=== PATIENT | female | born 1970 | race Caucasian/White ===

== ENCOUNTER 2022-02-20 10:45 | Emergency (ER) | payer BC ==
[2022-02-20 11:06] VITALS: BP 190/75
--- NOTE | 2022-02-20 11:09 | ED Physician Documentation ---
PD HPI LOWER EXT INJURY - Stated complaint Stated Complaint: LEFT KNEE PROBLEM - Chief complaint Chief Complaint: Ext Problem - History obtained from History obtained from: Patient - History of Present Illness PD HPI LOW EXT INJURY LOCATION: Left, Knee Type of injury: No: Fall, Twist Where injury occurred: Home Timing - onset: How many days ago (4) Timing - duration: Days (4) Timing - details: Gradual onset, Still present Improved by: Rest Worsened by: Moving, Other (most pain with walking/standing, and particularly up steps.). No: Palpating Associated symptoms: Swelling (mild at left knee). No: Weakness, Numbness Similar symptoms before: No diagnosis (has had some pains in knee at times but not like the current pain.), Has not had sx before Review of Systems Constitutional: denies: Fever, Chills, Myalgias Nose: denies: Rhinorrhea / runny nose, Congestion Throat: denies: Sore throat Cardiac: denies: Chest pain / pressure Respiratory: denies: Dyspnea, Cough Musculoskeletal: reports: Joint pain (just left knee). denies: Extremity swelling Neurologic: denies: Focal weakness, Numbness PD PAST MEDICAL HISTORY - Past Medical History Musculoskeletal: None Other Past Medical History: prior breast cancer. - Present Medications Home Medications: Ambulatory Orders Medication Instructions Recorded Confirmed HYDROcod/ACETAM 5/325 [Brooker 5/325] 1 ea PO Q6H PRN #15 tablet 02/20/22 Meloxicam [Mobic] 7.5 mg PO BID 10 Days #20 tablet 02/20/22 - Allergies Allergies/Adverse Reactions: Allergies Allergy/AdvReac Type Severity Reaction Status Date / Time No Known Drug Allergies Allergy Verified 02/20/22 10:54 PD ED PE NORMAL - Vitals Vital signs reviewed: Yes - General General: Alert and oriented X 3, No acute distress (with knee straight and not moving. Very painful trying to stand on knee with feeling of "about to give out".), Well developed/nourished - Derm Derm: Normal color, Warm and dry, No rash - Extremities Extremities: No edema, No calf tenderness / cord, Other (no popliteal pain. Knee with mild effusion. No redness nor wamrth. No skin sores. Ligament testing without pain nor laxity. There is some pain without locking/clicking with impaction testing in flexed. ) - Neuro Neuro: No motor deficit, No sensory deficit, Normal speech Results - Vitals Vitals: Vital Signs - 24 hr 02/20/22 10:51 Temperature 36.5 C Heart Rate 78 Respiratory 20 Rate Blood Pressure 190/75 H O2 Saturation 98 Oxygen O2 Source Room air - Rads (name of study) left knee Radiology: Prelim report reviewed (mild arthritis.), See rad report PD MEDICAL DECISION MAKING - ED course Complexity details: reviewed results, considered differential (monoarticular anderson n left knee without rash, redness nor systemic symptoms. Character of the pain seems likely meniscal. Ligament testing without pain/laxity. Xray mild arthritic only. ), d/w patient Departure - Departure Disposition: 01 Home, Self Care Clinical Impression: Knee pain, left Qualifiers: Chronicity: acute Qualified Code(s): M25.562 - Pain in left knee Condition: Stable Record reviewed to determine appropriate education?: Yes Follow-Up: Imani Honeycutt MD [Primary Care Provider] - Randy Keys MD [Provider Admit Priv/Credential] - Prescriptions: Meloxicam [Mobic] 7.5 mg PO BID 10 Days #20 tablet HYDROcod/ACETAM 5/325 [Brooker 5/325] 1 ea PO Q6H PRN #15 tablet PRN Reason: Pain Comments: Your knee x-ray appears very minimal arthritis. Your symptoms would be suggestive more of a meniscal or cartilage abnormality with inflammation. I would try a sturdier knee brace that we give you to help support it better when walking. You do not have to wear it when resting. We can try different anti-inflammatory since ibuprofen is not helping. It may be just the mechanics of it hurting but we can still try a different anti- inflammatory. Meloxicam twice daily with food for the next 7 to 10 days. To that add Tylenol every 4-6 hours if needed for pain or hydrocodone if needed for worse pain. Follow-up with your primary care regarding further evaluation and potential other imaging such as MRI possibly. You could also follow-up with orthopedics for further evaluation as well. I transmitted your prescription to [facility]. I am prescribing a short course of narcotic pain medication for you. These are potentially dangerous and addictive medications that should be used carefully. These medications may constipate you. Take an [id number] stool softener such as docusate twice daily with plenty of water while taking these medications. If you go 24 hours without a bowel movement, take [id number] MiraLAX, per package instructions. Do not drink or drive while taking these medications. If you received narcotic or sedating medications while in the emergency department do not drive for 24 hours. Store this medication in a safe, secure place and out of reach of children. It is a violation of federal law to give or sell this medication to another person or to use in a manner other than prescribed. The ED will not refill narcotic prescriptions, including prescriptions lost or stolen. You can dispose of unwanted medications at the [facility]'s office or at several pharmacies such as [facility]. Discharge Date/Time: 02/20/22 12:36
[2022-02-20] MEDS ORDERED: DEXAMETHASONE 10 MG/ML VIAL PO STA (11:23)
[2022-02-20] MEDS ORDERED: CHERRY SYRUP 10 ML UDC PO ONE (11:23)
[2022-02-20] MEDS ORDERED: HYDROcod/ACETAM 5/325 MG TABLET PO STA (11:23)
--- NOTE | 2022-02-20 11:54 | XRAY Report ---
PROCEDURE: Knee 3 View LT INDICATIONS: knee pain without injury TECHNIQUE: 3 views of the left knee(s) were acquired. COMPARISON: None. FINDINGS: Bones: No fractures or dislocations. No suspicious bony lesions. There is minimal early degenerati ve change within the medial compartment. No erosions. Soft tissues: No joint effusion. No suspicious soft tissue calcifications. IMPRESSION: Early minimal early medial compartment degenerative change. Reviewed by: Arti Carl MD on 02/20/2022 11:52 AM PDT Approved by: Arti Carl MD on 02/20/2022 11:52 AM PDT Station ID: [id number]
== END 2022-02-20 12:36 | disposition home or self-care (01) ==
LOC: ED 10:45
DX: M25.562 Pain in left knee (principal)
CPT/HCPCS: 73562; 99282; 99283; A9270